=== PATIENT | male | born 1985 | race Two or more races ===

== ENCOUNTER 2016-12-23 08:41 | Emergency (ER) | payer MEDICAID ==
[~2016-12-23] VITALS: Ht 167.6 cm; Wt 113.4 kg
[2016-12-23 08:56] VITALS: BP 143/93
== END 2016-12-23 09:43 | disposition home or self-care (01) ==
LOC: ER 08:41
DX: L03.811 Cellulitis of head [any part, except face] (principal); Z87.891 Personal history of nicotine dependence